=== PATIENT | male | born 1980 | race African-American/Black ===

== ENCOUNTER 2017-01-27 15:48 | Emergency (ER) | payer OTHER ==
--- NOTE | 2017-01-27 16:22 | XRay Report ---
LEFT FOOT, 3 views: History: Left foot injury. The bony architecture is intact. Bony alignment is normal. No soft tissue abnormalities are seen. The joint spaces appear preserved. IMPRESSION: Normal left foot.
[2017-01-27 23:22] LABS: Hematocrit 44.7 % (35.5-45.6); Hemoglobin 15.4 gm/dl (11.8-15.2); Mean Corpuscular HGB Conc 34 % (32-34); Mean Corpuscular Hemoglobin 28 pg (28-32); Mean Corpuscular Volume 81 fl (84-94); Platelet Count 229 K/mm3 (140-440); Red Cell Distribution Width 12.4 % (13.2-15.2); White Blood Count 8.3 K/mm3 (4.5-11.0)
[2017-01-27] MEDS ORDERED: TORADOL IM ONE (23:26)
[2017-01-27] MEDS ORDERED: CATAPRES PO ONE (23:26)
[2017-01-27 23:42] LABS: Anion Gap 22 mmol/L; BUN/Creatinine Ratio 21.42; Blood Urea Nitrogen 15 mg/dL (9-20); Calcium 10.2 mg/dL (8.4-10.2); Carbon Dioxide 24 mmol/L (22-30); Chloride 91.4 mmol/L (98-107); Glucose 268 mg/dL (75-100); Potassium 4.1 mmol/L (3.6-5.0); Sodium 133 mmol/L (137-145)
[2017-01-28 00:16] VITALS: BP 144/96
[2017-01-28] MEDS ORDERED: GLUCOPHAGE PO ONE (00:25)
--- NOTE | 2017-01-28 00:39 | Emergency Department Report ---
ED Extremity Problem HPI - General Chief complaint: Extremity Injury, Lower Stated complaint: WORK RELATED/LEFT FOOT INJURY Time Seen by Provider: 01/27/17 22:52 Source: patient Mode of arrival: Ambulatory Limitations: No Limitations - History of Present Illness Initial comments: 36-year-old male with a past medical history of [id number] diabetes and hypertension presents to the hospital complaints of left foot injury. Patient states a forklift ran over his left foot while it was in his work shoes. Patient complains of maximum pain to his fifth toe with ecchymosis. Pain rated 5/10 intensity, constant, throbbing, worse on movement and palpation. No specific alleviating factors. Patient also presents with elevated high blood pressure and states she's been noncompliant with his unknown blood pressure medications 1 month. Denies headache, blurred vision, chest pain, or shortness of breath. Pt did not take metformin today Severity scale (0 -10): 5 - Related Data Previous Rx's Medication Instructions Recorded Last Taken Type HYDROcodone/APAP 5-325 [[place] 1 each PO Q6HR PRN #20 tablet 01/28/17 Unknown Rx 5/325] Ibuprofen [Motrin] 800 mg PO Q8HR PRN #30 tablet 01/28/17 Unknown Rx amLODIPine [Norvasc] 10 mg PO DAILY #30 tab 01/28/17 Unknown Rx Allergies Allergy/AdvReac Type Severity Reaction Status Date / Time No Known Allergies Allergy Unverified 01/27/17 15:57 ED Review of Systems ROS: Stated complaint: WORK RELATED/LEFT FOOT INJURY Other details as noted in HPI Comment: All other systems reviewed and negative Other: Constitutional: No fevers chills Eyes: No eye pain visual changes ENT: No ear pain or throat pain Neck: Denies pain Respiratory: Denies cough wheezing shortness of breath Cardiovascular: Denies chest pain, palpitations, syncope GI: Denies abdominal pain : Denies dysuria, urinary frequency, or urgency Musculoskeletal: as per hpi Skin: Denies rash, lesions, erythema Neurologic: Denies headache, numbness, weakness Psychiatric: Denies suicidal ideation, hallucinations ED Past Medical Hx - Past Medical History Previous Medical History?: Yes Hx Hypertension: Yes Hx Diabetes: Yes - Surgical History Past Surgical History?: No - Social History Smoking Status: Never Smoker Substance Use Type: Alcohol, Prescribed - Medications Home Medications: Home Medications Medication Instructions Recorded Confirmed Last Taken Type HYDROcodone/APAP 5-325 [[place] 1 each PO Q6HR PRN #20 tablet 01/28/17 Unknown Rx 5/325] Ibuprofen [Motrin] 800 mg PO Q8HR PRN #30 tablet 01/28/17 Unknown Rx amLODIPine [Norvasc] 10 mg PO DAILY #30 tab 01/28/17 Unknown Rx ED Physical Exam - General Limitations: No Limitations - Other Other exam information: General: No limitations, patient is alert in no acute distress Head exam: Atraumatic, normocephalic Eyes exam: Normal appearance ENT: Moist mucous membrane, normal oropharynx Neck exam: Normal inspection, full range of motion Respiratory exam: Clear to auscultation bilateral, no wheezes, rales, crackles Cardiovascular: Normal rate and rhythm, normal heart sounds Abdomen: Soft, nondistended, and nontender, with normal bowel sounds, no rebound, or guarding Extremity: Ecchymosis to fifth left toe with tendernes, FROM, no other tenderness, very minimal left sided subungal hematoma of left pinky toe Back: Normal Inspection, full range of motion, no tenderness Neurologic: Alert, oriented x3, cranial nerves intact, no motor or sensory deficit Psychiatric: normal affect, normal mood Skin: Warm, dry, intact ED Course Vital Signs 01/27/17 01/27/17 01/27/17 15:57 23:11 23:39 Temperature 97.5 F L Pulse Rate 110 H 97 H Respiratory 20 16 Rate Blood Pressure 201/132 174/103 Blood Pressure 187/121 [Left] O2 Sat by Pulse 100 100 Oximetry 01/28/17 00:15 Temperature Pulse Rate 96 H Respiratory 16 Rate Blood Pressure Blood Pressure 144/96 [Left] O2 Sat by Pulse 97 Oximetry - Reevaluation(s) Reevaluation #1: 01/28/17 00:41 The patient improved after clonidine. Pain improved after toradol ED Medical Decision Making - Lab Data Result diagrams: 01/27/17 23:09 01/27/17 23:09 Lab Results 01/27/17 01/27/17 Range/Units 23:09 23:09 WBC 8.3 (4.5-11.0) K/mm3 RBC 5.50 H (3.65-5.03) M/mm3 Hgb 15.4 H (11.8-15.2) gm/dl Hct 44.7 (35.5-45.6) % MCV 81 L (84-94) fl MCH 28 (28-32) pg MCHC 34 (32-34) % RDW 12.4 L (13.2-15.2) % Plt Count 229 (140-440) K/mm3 Sodium 133 L (137-145) mmol/L Potassium 4.1 (3.6-5.0) mmol/L Chloride 91.4 L (98-107) mmol/L Carbon Dioxide 24 (22-30) mmol/L Anion Gap 22 mmol/L BUN 15 (9-20) mg/dL Creatinine 0.7 L (0.8-1.5) mg/dL Estimated GFR > 60 ml/min BUN/Creatinine Ratio 21.42 % Glucose 268 H (75-100) mg/dL Calcium 10.2 (8.4-10.2) mg/dL - Radiology Data Radiology results: report reviewed (left foot xray: naf) - Medical Decision Making Initial read of left foot x-ray was negative however, patient's injury is at the pinky toe on the left foot. I suspect that he does have a fracture of the still phalanx of the fifth toe. Fourth and fifth toe with bloody splinting cashew provided and patient will be referred to orthopedics. Norvasc 10 mg will be initiated for hypertension. - Differential Diagnosis fxt, contusion, sprain, hypertensive emergency/urgency Critical Care Time: No Critical care attestation.: If time is entered above; I have spent that time in minutes in the direct care of this critically ill patient, excluding procedure time. ED Disposition Clinical Impression: Fracture of fifth toe, left, closed, Uncontrolled hypertension, Hyperglycemia due to type 2 diabetes mellitus, Noncompliance with medication regimen Disposition: DISCHARGED TO HOME OR SELFCARE Is pt being admited?: No Does the pt Need Aspirin: No Condition: Stable Instructions: Chronic Hypertension (ED), Hypertension (ED), Toe Fracture (ED), Diabetes Mellitus Type 2 in Adults (ED) Additional Instructions: Take the medication as prescribed. Follow-up with your primary care doctor and the orthopedic doctor provided. Return if symptoms worsen Prescriptions: amLODIPine [Norvasc] 10 mg PO DAILY #30 tab HYDROcodone/APAP 5-325 [[place] 5/325] 1 each PO Q6HR PRN #20 tablet PRN Reason: Pain Ibuprofen [Motrin] 800 mg PO Q8HR PRN #30 tablet PRN Reason: Pain Referrals: PRIMARY CARE, [Primary Care Provider] - 3-5 Days JOANIE HILARIO MD [Staff Physician] - 3-5 Days (ortho ) Time of Disposition: 00:52
== END 2017-01-28 01:17 | disposition home or self-care (01) ==
LOC: ED 15:48
DX: S92.592A Other fracture of left lesser toe(s), initial encounter for closed fracture (principal); E11.65 Type 2 diabetes mellitus with hyperglycemia; I10 Essential (primary) hypertension; W24.0XXA Contact with lifting devices, not elsewhere classified, initial encounter; Y93.89 Activity, other specified; Y99.0 Civilian activity done for income or pay; Y92.89 Other specified places as the place of occurrence of the external cause
CPT/HCPCS: 29515; 36415; 73630; 80048; 85027; 96372; 99284; J1885